=== PATIENT | male | born 1940 | race Hispanic/Latino ===

== ENCOUNTER 2020-01-10 15:43 | Emergency (ER) | payer MEDICARE ==
[2020-01-10] MEDS ORDERED: ACETAMINOPHEN 500 MG TAB PO ONE (16:24)
--- NOTE | 2020-01-10 16:38 | Emergency Department Report ---
ED Fever HPI - General Chief Complaint: Fever Stated Complaint: FEVER AND CHILLS Time Seen by Provider: 01/10/20 16:21 Source: patient Exam Limitations: no limitations - History of Present Illness Initial Comments: 79-year male with a past medical history of kidney stones, GERD, and "stomach problems/constipation presents to the hospital complains of fever x2 in the last 10 days. About 10 days ago patient had a fever of 100 degrees. Symptoms then resolved. Today patient felt very hot with chills but did not have access to his thermometer. He took aspirin 325 mg prior to arrival. Temperature in the ED is 101.3. Patient complains of an occasional dry cough, mild sore throat, and bloated feeling in his stomach. He denies loss of sense of taste or smell, headache, nausea, vomiting, chest pain, shortness of breath, diarrhea, or dysuria. Patient has not been tested for coronavirus. He has not had a known positive coronavirus contacts. PMD Dr. Ramsay ED Review of Systems ROS: Stated complaint: FEVER AND CHILLS Other details as noted in HPI Comment: All other systems reviewed and negative ED Past Medical Hx - Past Medical History Previous Medical History?: Yes Hx GERD: Yes Hx Renal Disease: No (Renal stones) Hx Kidney Stones: Yes Hx Asthma: No Hx HIV: No Additional medical history: fever - Surgical History Past Surgical History?: No - Social History Smoking Status: Former Smoker - Medications Home Medications: Home Medications Medication Instructions Recorded Confirmed Last Taken Type Aspirin EC [Aspirin Enteric Coated 81 mg PO QDAY 01/24/15 05/29/15 04/30/15 History TAB] Finasteride 1 tab PO DAILY 01/24/15 05/29/15 01/27/15 History Omeprazole 1 tab PO DAILY 01/24/15 05/30/15 05/29/15 23:00 History Tamsulosin HCl 1 tab PO DAILY 01/24/15 05/29/15 01/27/15 History Bethanechol Chloride [Urecholine] 50 mg PO 05/30/15 05/30/15 05/29/15 20:00 History Nitrofurantoin [place]/M-Cryst 100 mg PO Q12HR #14 capsule 01/10/20 Unknown Rx [Macrobid CAP] ED Physical Exam - General Limitations: No Limitations - Other Other exam information: General: No acute distress Head: Atraumatic Eyes: normal appearance ENT: Moist mucous membranes, no tender Neck: Normal appearance, no midline tenderness Chest: Clear to auscultation bilaterally CV: Regular rate and rhythm Abdomen: Soft, normal bowel sounds, nontender, nondistended, no rebound or guarding Back: Normal inspection Extremity: Normal inspection, full range of motion Neuro: Alert O x 3, no facial asymmetry, speech clear, no gross motor sensory deficit Psych: Appropriate behavior Skin: No rash ED Course Vital Signs 01/10/20 01/10/20 01/10/20 16:12 16:15 17:00 Temperature 101.3 F H Pulse Rate 98 H 91 H Respiratory 23 23 Rate Blood Pressure 104/47 Blood Pressure 102/60 [Right] O2 Sat by Pulse 95 93 94 Oximetry 01/10/20 01/10/20 01/10/20 18:00 19:00 20:01 Temperature Pulse Rate 76 77 62 Respiratory 18 19 15 Rate Blood Pressure 99/39 95/38 87/45 Blood Pressure [Right] O2 Sat by Pulse 94 93 95 Oximetry 01/10/20 20:20 Temperature 97.8 F Pulse Rate 60 Respiratory 20 Rate Blood Pressure Blood Pressure 98/38 [Right] O2 Sat by Pulse 99 Oximetry ED Medical Decision Making - Lab Data Result diagrams: 01/10/20 16:44 01/10/20 16:44 Lab Results 01/10/20 01/10/20 01/10/20 Range/Units 16:44 16:44 16:44 WBC 9.5 (4.5-11.0) K/mm3 RBC 4.38 (3.65-5.03) M/mm3 Hgb 13.9 (11.8-15.2) gm/dl Hct 41.0 (35.5-45.6) % MCV 94 (84-94) fl MCH 32 (28-32) pg MCHC 34 (32-34) % RDW 14.0 (13.2-15.2) % Plt Count 236 (140-440) K/mm3 Lymph % (Auto) 2.8 L (13.4-35.0) % [place] % (Auto) 7.2 (0.0-7.3) % Eos % (Auto) 0.1 (0.0-4.3) % Baso % (Auto) 0.7 (0.0-1.8) % Lymph # 0.3 L (1.2-5.4) K/mm3 [place] # 0.7 (0.0-0.8) K/mm3 Eos # 0.0 (0.0-0.4) K/mm3 Baso # 0.1 (0.0-0.1) K/mm3 Seg Neutrophils % 89.2 H (40.0-70.0) % Seg Neutrophils # 8.5 H (1.8-7.7) K/mm3 Sodium 139 (137-145) mmol/L Potassium 3.5 L (3.6-5.0) mmol/L Chloride 100.4 (98-107) mmol/L Carbon Dioxide 25 (22-30) mmol/L Anion Gap 17 mmol/L BUN 12 (9-20) mg/dL Creatinine 0.7 L (0.8-1.5) mg/dL Estimated GFR > 60 ml/min BUN/Creatinine Ratio 17 % Glucose 121 H (75-100) mg/dL Lactic Acid 1.40 (0.7-2.0) mmol/L Calcium 9.0 (8.4-10.2) mg/dL Total Bilirubin 0.60 (0.1-1.2) mg/dL AST 16 (5-40) units/L ALT 10 (7-56) units/L Alkaline Phosphatase 53 (35-129) units/L Troponin T < 0.010 (0.00-0.029) ng/mL Total Protein 7.0 (6.3-8.2) g/dL Albumin 4.0 (3.9-5) g/dL Albumin/Globulin Ratio 1.3 % Urine Color (Yellow) Urine Turbidity (Clear) Urine pH (5.0-7.0) Ur Specific [place] (1.003-1.030) Urine Protein (Negative) mg/dL Urine Glucose (UA) (Negative) mg/dL Urine Ketones (Negative) mg/dL Urine Blood (Negative) Urine Nitrite (Negative) Urine Bilirubin (Negative) Urine Urobilinogen (<2.0) mg/dL Ur Leukocyte Esterase (Negative) Urine WBC (Auto) (0.0-6.0) /HPF Urine RBC (Auto) (0.0-6.0) /HPF Urine Bacteria (Auto) (Negative) /HPF Urine Mucus /HPF 01/10/20 01/10/20 Range/Units 19:58 Unknown WBC (4.5-11.0) K/mm3 RBC (3.65-5.03) M/mm3 Hgb (11.8-15.2) gm/dl Hct (35.5-45.6) % MCV (84-94) fl MCH (28-32) pg MCHC (32-34) % RDW (13.2-15.2) % Plt Count (140-440) K/mm3 Lymph % (Auto) (13.4-35.0) % [place] % (Auto) (0.0-7.3) % Eos % (Auto) (0.0-4.3) % Baso % (Auto) (0.0-1.8) % Lymph # (1.2-5.4) K/mm3 [place] # (0.0-0.8) K/mm3 Eos # (0.0-0.4) K/mm3 Baso # (0.0-0.1) K/mm3 Seg Neutrophils % (40.0-70.0) % Seg Neutrophils # (1.8-7.7) K/mm3 Sodium (137-145) mmol/L Potassium (3.6-5.0) mmol/L Chloride (98-107) mmol/L Carbon Dioxide (22-30) mmol/L Anion Gap mmol/L BUN (9-20) mg/dL Creatinine (0.8-1.5) mg/dL Estimated GFR ml/min BUN/Creatinine Ratio % Glucose (75-100) mg/dL Lactic Acid 0.80 (0.7-2.0) mmol/L Calcium (8.4-10.2) mg/dL Total Bilirubin (0.1-1.2) mg/dL AST (5-40) units/L ALT (7-56) units/L Alkaline Phosphatase (35-129) units/L Troponin T (0.00-0.029) ng/mL Total Protein (6.3-8.2) g/dL Albumin (3.9-5) g/dL Albumin/Globulin Ratio % Urine Color Yellow (Yellow) Urine Turbidity Slightly-cloudy (Clear) Urine pH 6.0 (5.0-7.0) Ur Specific [place] 1.016 (1.003-1.030) Urine Protein <15 mg/dl (Negative) mg/dL Urine Glucose (UA) Neg (Negative) mg/dL Urine Ketones Neg (Negative) mg/dL Urine Blood Sm (Negative) Urine Nitrite Neg (Negative) Urine Bilirubin Neg (Negative) Urine Urobilinogen < 2.0 (<2.0) mg/dL Ur Leukocyte Esterase Tr (Negative) Urine WBC (Auto) 20.0 H (0.0-6.0) /HPF Urine RBC (Auto) 7.0 (0.0-6.0) /HPF Urine Bacteria (Auto) 1+ (Negative) /HPF Urine Mucus Few /HPF - Radiology Data Radiology results: report reviewed CHEST 1 VIEW 01/10/2020 4:07 PM INDICATION / CLINICAL INFORMATION: fever, pui. COVID-19 Status: Uncertain COMPARISON: None available. FINDINGS: SUPPORT DEVICES: None. HEART / MEDIASTINUM: Heart is normal size. Thoracic aorta is tortuous. LUNGS / PLEURA: No significant pulmonary or pleural abnormality. No pneumothorax. ADDITIONAL FINDINGS: No significant additional findings. IMPRESSION: 1. No acute pulmonary or pleural findings. - Medical Decision Making Chest x-ray was unremarkable. Urine positive for infection. Patient treated with normal saline, Tylenol, and 1 dose of IV Rocephin. Patient without symptoms prior to discharge and will be discharged with antibiotics Critical Care Time: No Critical care attestation.: If time is entered above; I have spent that time in minutes in the direct care of this critically ill patient, excluding procedure time. ED Disposition Clinical Impression: UTI (urinary tract infection) Disposition: DC-01 TO HOME OR SELFCARE Is pt being admited?: No Does the pt Need Aspirin: No Condition: Stable Instructions: Urinary Tract Infection in Men (ED) Additional Instructions: Take the medication as prescribed. Follow-up with your doctor or doctor/clinic provided. Return if symptoms worsen as indicated by your discharge instructions. We also advised that you receive outpatient coronavirus testing as discussed by your primary care doctor Dr. Ramsay. Prescriptions: Nitrofurantoin [place]/M-Cryst [Macrobid CAP] 100 mg PO Q12HR #14 capsule Referrals: SALINAS RAMSAY MD [Staff Physician] - 3-5 Days Time of Disposition: 21:42
[2020-01-10 16:58] LABS: Basophils # (Auto) 0.1 K/mm3 (0.0-0.1); Basophils % (Auto) 0.7 % (0.0-1.8); Eosinophils % (Auto) 0.1 % (0.0-4.3); Hemoglobin 13.9 gm/dl (11.8-15.2); Lymphocytes # (Auto) 0.3 K/mm3 (1.2-5.4); Lymphocytes % (Auto) 2.8 % (13.4-35.0); Mean Corpuscular HGB Conc 34 % (32-34); Mean Corpuscular Volume 94 fl (84-94); Monocytes # (Auto) 0.7 K/mm3 (0.0-0.8); Monocytes % (Auto) 7.2 % (0.0-7.3); Platelet Count 236 K/mm3 (140-440); Red Blood Count 4.38 M/mm3 (3.65-5.03)
--- NOTE | 2020-01-10 17:14 | XRay Report ---
CHEST 1 VIEW 01/10/2020 4:07 PM INDICATION / CLINICAL INFORMATION: fever, pui. COVID-19 Status: Uncertain COMPARISON: None available. FINDINGS: SUPPORT DEVICES: None. HEART / MEDIASTINUM: Heart is normal size. Thoracic aorta is tortuous. LUNGS / PLEURA: No significant pulmonary or pleural abnormality. No pneumothorax. ADDITIONAL FINDINGS: No significant additional findings. IMPRESSION: 1. No acute pulmonary or pleural findings. Signer Name: Darion Kasper MD Signed: 01/10/2020 5:09 PM Workstation Name: [id number]
[2020-01-10 17:21] LABS: Alanine Aminotransferase 10 units/L (7-56); BUN/Creatinine Ratio 17; Blood Urea Nitrogen 12 mg/dL (9-20); Hemolysis Index 8
[2020-01-10 18:42] LABS: Bacteria,Urine 1+ /HPF (Negative); Bilirubin,Urine NEG (Negative); Blood,Urine SM (Negative); Color,Urine Yellow (Yellow); Mucus,Urine FEW /HPF; Protein,Urine <15 mg/dL mg/dL (Negative); Urobilinogen,Urine < 2.0 mg/dL (<2.0)
[2020-01-10] MEDS ORDERED: cefTRIAXone/NS 1 GM/50 ML 1 GM/50 ML BAG IV ONE (19:17)
[2020-01-10] MEDS ORDERED: POTASSIUM CHLORIDE ER 20 MEQ TAB PO ONE (19:25)
[2020-01-10] MEDS ORDERED: SODIUM CHLORIDE 0.9% 1000 ML 1,000 ML IV ONE (19:26)
[2020-01-10 21:47] VITALS: BP 100/45
== END 2020-01-10 21:46 | disposition home or self-care (01) ==
LOC: ED 15:43
DX: N39.0 Urinary tract infection, site not specified (principal); K21.9 Gastro-esophageal reflux disease without esophagitis; Z87.891 Personal history of nicotine dependence; Z79.899 Other long term (current) drug therapy
CPT/HCPCS: 36415; 71045; 80053; 81001; 82140; 84484; 85025; 87040; 87086; 96365; 99284; J0696; J7030

== ENCOUNTER 2020-06-15 14:37 | Emergency (ER) | payer MEDICARE ==
[2020-06-15 15:15] LABS: Basophils # (Auto) 0.1 K/mm3 (0.0-0.1); Basophils % (Auto) 1.1 % (0.0-1.8); Eosinophils # (Auto) 0.2 K/mm3 (0.0-0.4); Eosinophils % (Auto) 2.2 % (0.0-4.3); Hematocrit 41.2 % (35.5-45.6); Hemoglobin 13.9 gm/dl (11.8-15.2); Lymphocytes # (Auto) 1.4 K/mm3 (1.2-5.4); Lymphocytes % (Auto) 19.9 % (13.4-35.0); Mean Corpuscular HGB Conc 34 % (32-34); Mean Corpuscular Volume 94 fl (84-94); Monocytes # (Auto) 0.4 K/mm3 (0.0-0.8); Monocytes % (Auto) 5.9 % (0.0-7.3); Platelet Count 247 K/mm3 (140-440); Red Blood Count 4.36 M/mm3 (3.65-5.03); Red Cell Distribution Width 14.3 % (13.2-15.2)
[2020-06-15 15:34] LABS: Alanine Aminotransferase 19 units/L (7-56); Albumin 4.1 g/dL (3.9-5); BUN/Creatinine Ratio 16; Blood Urea Nitrogen 13 mg/dL (9-20); Calcium 9.4 mg/dL (8.4-10.2); Hemolysis Index 5
--- NOTE | 2020-06-15 23:26 | Emergency Department Report ---
HPI - General Chief Complaint: Abdominal Pain Time Seen by Provider: 06/15/20 23:08 - HPI HPI: Room 24 The patient is an 79-year-old male present with a chief complaint of chills. The patient states he has to self catheterize and he knows when he gets UTIs. Patient states he tends to get constipated when he has a UTI. Patient states he developed constipation and then in the waiting room he developed shaking chills which he normally develops when he has a UTI. Patient denies nausea/vomiting, fever, hematuria or back pain. ED Past Medical Hx - Past Medical History Previous Medical History?: Yes Hx GERD: Yes Hx Kidney Stones: Yes - Surgical History Past Surgical History?: No - Family History Family history: no significant - Social History Smoking Status: Former Smoker (None x50 years) Substance Use Type: None - Medications Home Medications: Home Medications Medication Instructions Recorded Confirmed Last Taken Type Aspirin EC [Aspirin Enteric Coated 81 mg PO QDAY 01/24/15 05/29/15 04/30/15 History TAB] Finasteride 1 tab PO DAILY 01/24/15 05/29/15 01/27/15 History Omeprazole 1 tab PO DAILY 01/24/15 05/30/15 05/29/15 23:00 History Tamsulosin HCl 1 tab PO DAILY 01/24/15 05/29/15 01/27/15 History Bethanechol Chloride [Urecholine] 50 mg PO 05/30/15 05/30/15 05/29/15 20:00 History Nitrofurantoin [place]/M-Cryst 100 mg PO Q12HR #14 capsule 01/10/20 Unknown Rx [Macrobid CAP] levoFLOXacin [Levaquin TAB] 500 mg PO QDAY #10 tablet 06/16/20 Unknown Rx ED Review of Systems ROS: Stated complaint: ABDOMINAL PAIN Other details as noted in HPI Constitutional: denies: fever Eyes: denies: eye pain ENT: denies: throat pain Respiratory: no symptoms reported Cardiovascular: denies: chest pain Endocrine: no symptoms reported Gastrointestinal: denies: abdominal pain, nausea, vomiting, diarrhea Genitourinary: denies: hematuria Musculoskeletal: denies: back pain Neurological: denies: headache Physical Exam - Physical Exam Physical Exam: GENERAL: The patient is well-developed well-nourished male lying on stretcher not appearing to be in acute distress. [] HEENT: Normocephalic. Atraumatic. Extraocular motions are intact. Patient has moist mucous membranes. NECK: Supple. Trachea midline CHEST/LUNGS: Clear to auscultation. There is no respiratory distress noted. HEART/CARDIOVASCULAR: Regular. There is no tachycardia. There is no gallop rub or murmur. ABDOMEN: Abdomen is soft, nontender. Patient has normal bowel sounds. There is no abdominal distention. SKIN: There is no rash. There is no edema. There is no diaphoresis. NEURO: The patient is awake, alert, and oriented. The patient is cooperative. The patient has no focal neurologic deficits. The patient has normal speech and gait. MUSCULOSKELETAL: There is no evidence of acute injury. ED Medical Decision Making - Lab Data Result diagrams: 06/15/20 15:00 06/15/20 15:00 Laboratory Tests 06/15/20 06/15/20 06/15/20 15:00 15:00 Unknown WBC 7.1 RBC 4.36 Hgb 13.9 Hct 41.2 MCV 94 MCH 32 MCHC 34 RDW 14.3 Plt Count 247 Lymph % (Auto) 19.9 [place] % (Auto) 5.9 Eos % (Auto) 2.2 Baso % (Auto) 1.1 Lymph # (Auto) 1.4 [place] # (Auto) 0.4 Eos # (Auto) 0.2 Baso # (Auto) 0.1 Seg Neutrophils % 70.9 H Seg Neutrophils # 5.0 Sodium 138 Potassium 4.3 Chloride 100.3 Carbon Dioxide 29 Anion Gap 13 BUN 13 Creatinine 0.8 Estimated GFR > 60 BUN/Creatinine Ratio 16 Glucose 98 Calcium 9.4 Total Bilirubin 0.50 AST 24 ALT 19 Alkaline Phosphatase 55 Total Protein 6.8 Albumin 4.1 Albumin/Globulin Ratio 1.5 Urine Color Yellow Urine Turbidity Slightly-cloudy Urine pH 5.0 Ur Specific [place] 1.010 Urine Protein <15 mg/dl Urine Glucose (UA) Neg Urine Ketones Tr Urine Blood Lg Urine Nitrite Pos Urine Bilirubin Neg Urine Urobilinogen < 2.0 Ur Leukocyte Esterase Sm Urine WBC (Auto) 54.0 H Urine RBC (Auto) 156.0 U Epithel Cells (Auto) < 1.0 Urine Bacteria (Auto) 2+ Urine Mucus Few - Differential Diagnosis UTI, constipation Critical care attestation.: If time is entered above; I have spent that time in minutes in the direct care of this critically ill patient, excluding procedure time. ED Disposition Clinical Impression: UTI (urinary tract infection) Disposition: TO HOME OR SELFCARE Is pt being admited?: No Does the pt Need Aspirin: No Condition: Stable Additional Instructions: Return to the emergency department should you develop worsening symptoms, inability to tolerate food or liquids, high fever or any other concerns Prescriptions: levoFLOXacin [Levaquin TAB] 500 mg PO QDAY #10 tablet Referrals: GERSON LEW MD [Primary Care Provider] - 3-5 Days
[2020-06-16 00:07] LABS: Bacteria,Urine 2+ /HPF (Negative); Bilirubin,Urine NEG (Negative); Blood,Urine LG (Negative); Color,Urine Yellow (Yellow); Mucus,Urine FEW /HPF; Protein,Urine <15 mg/dL mg/dL (Negative); Urobilinogen,Urine < 2.0 mg/dL (<2.0)
[2020-06-16] MEDS ORDERED: levoFLOXacin 500 MG TAB PO ONE (00:10)
[2020-06-16 00:23] VITALS: BP 141/78
== END 2020-06-16 01:00 | disposition home or self-care (01) ==
LOC: ED 14:37
DX: N39.0 Urinary tract infection, site not specified (principal); K21.9 Gastro-esophageal reflux disease without esophagitis; Z87.891 Personal history of nicotine dependence
CPT/HCPCS: 36415; 80053; 81001; 85025; 87086

== ENCOUNTER 2020-08-24 10:49 | Emergency (ER) | payer MEDICARE, BC ==
[2020-08-24 10:54] VITALS: BP 129/63
[2020-08-24 11:29] LABS: Basophils # (Auto) 0.1 K/mm3 (0.0-0.1); Basophils % (Auto) 1.4 % (0.0-1.8); Eosinophils # (Auto) 0.1 K/mm3 (0.0-0.4); Eosinophils % (Auto) 3.3 % (0.0-4.3); Hematocrit 41.1 % (35.5-45.6); Hemoglobin 13.9 gm/dl (11.8-15.2); Lymphocytes # (Auto) 1.3 K/mm3 (1.2-5.4); Lymphocytes % (Auto) 28.4 % (13.4-35.0); Mean Corpuscular HGB Conc 34 % (32-34); Mean Corpuscular Volume 96 fl (84-94); Monocytes # (Auto) 0.4 K/mm3 (0.0-0.8); Monocytes % (Auto) 8.5 % (0.0-7.3); Platelet Count 244 K/mm3 (140-440); Red Blood Count 4.28 M/mm3 (3.65-5.03); Red Cell Distribution Width 14.2 % (13.2-15.2)
[2020-08-24 11:48] LABS: Bacteria,Urine 2+ /HPF (Negative); Bilirubin,Urine NEG (Negative); Blood,Urine SM (Negative); Color,Urine Amber (Yellow); Mucus,Urine 3+ /HPF; Urobilinogen,Urine < 2.0 mg/dL (<2.0)
[2020-08-24 11:49] LABS: WBC,Urine > 182.0 /HPF (0.0-6.0)
--- NOTE | 2020-08-24 11:50 | Emergency Department Report ---
ED Dysuria HPI - HPI Chief Complaint: Urogenital-Male Stated Complaint: CATHER ISSUE Duration: 2 Days Severity: Mild Symptoms: Dysuria: Yes, Frequency: Yes, Suprapubic Pain: No, Flank Pain: No, Fever: No, Hematuria: Yes, Abdominal Pain: No, Previous UTI's: Yes Other History: This is a 79-year-old male with a history of urinary retention who presents the ED complaining of dysuria and frequent urinary frequency stating that he has a UTI. Patient states he gets them often. Patient states he uses He uses a catheter as instructed by his primary care physician. ED Review of Systems ROS: Stated complaint: CATHER ISSUE Other details as noted in HPI Comment: All other systems reviewed and negative ED Past Medical Hx - Past Medical History Hx GERD: Yes Hx Renal Disease: No (Renal stones) Hx Kidney Stones: Yes Hx HIV: No - Social History Smoking Status: Never Smoker Substance Use Type: None - Medications Home Medications: Home Medications Medication Instructions Recorded Confirmed Last Taken Type Aspirin EC [Aspirin Enteric Coated 81 mg PO QDAY 01/24/15 05/29/15 04/30/15 History TAB] Finasteride 1 tab PO DAILY 01/24/15 05/29/15 01/27/15 History Omeprazole 1 tab PO DAILY 01/24/15 05/30/15 05/29/15 23:00 History Tamsulosin HCl 1 tab PO DAILY 01/24/15 05/29/15 01/27/15 History Bethanechol Chloride [Urecholine] 50 mg PO 05/30/15 05/30/15 05/29/15 20:00 History Nitrofurantoin [place]/M-Cryst 100 mg PO Q12HR #14 capsule 01/10/20 Unknown Rx [Macrobid CAP] levoFLOXacin [Levaquin TAB] 500 mg PO QDAY #10 tablet 06/16/20 Unknown Rx Nitrofurantoin [place]/M-Cryst 100 mg PO Q12HR #14 capsule 08/24/20 Unknown Rx [Macrobid CAP] Phenazopyridine [Pyridium] 100 mg PO TID #10 tab 08/24/20 Unknown Rx Dysuria Exam - Exam General: Vital signs noted. No distress. Alert and acting appropriately. Exam: Yes Moist Mucous Membranes, No CVA Tenderness, No Abdominal Tenderness, No Rigidity or Guarding Labs: Lab Results 08/24/20 08/24/20 Range/Units 11:08 11:11 WBC 4.5 (4.5-11.0) K/mm3 RBC 4.28 (3.65-5.03) M/mm3 Hgb 13.9 (11.8-15.2) gm/dl Hct 41.1 (35.5-45.6) % MCV 96 H (84-94) fl MCH 32 (28-32) pg MCHC 34 (32-34) % RDW 14.2 (13.2-15.2) % Plt Count 244 (140-440) K/mm3 Lymph % (Auto) 28.4 (13.4-35.0) % [place] % (Auto) 8.5 H (0.0-7.3) % Eos % (Auto) 3.3 (0.0-4.3) % Baso % (Auto) 1.4 (0.0-1.8) % Lymph # (Auto) 1.3 (1.2-5.4) K/mm3 [place] # (Auto) 0.4 (0.0-0.8) K/mm3 Eos # (Auto) 0.1 (0.0-0.4) K/mm3 Baso # (Auto) 0.1 (0.0-0.1) K/mm3 Seg Neutrophils % 58.4 (40.0-70.0) % Seg Neutrophils # 2.6 (1.8-7.7) K/mm3 Urine Bilirubin Neg (Negative) Urine RBC (Auto) 30.0 (0.0-6.0) /HPF ED Course Vital Signs 08/24/20 10:50 Temperature 98.3 F Pulse Rate 65 Respiratory 18 Rate Blood Pressure 129/63 O2 Sat by Pulse 98 Oximetry ED Medical Decision Making - Lab Data Result diagrams: 08/24/20 11:11 08/24/20 11:11 Laboratory Last Values WBC 4.5 K/mm3 (4.5-11.0) 08/24/20 11:11 RBC 4.28 M/mm3 (3.65-5.03) 08/24/20 11:11 Hgb 13.9 gm/dl (11.8-15.2) 08/24/20 11:11 Hct 41.1 % (35.5-45.6) 08/24/20 11:11 MCV 96 fl (84-94) H 08/24/20 11:11 MCH 32 pg (28-32) 08/24/20 11:11 MCHC 34 % (32-34) 08/24/20 11:11 RDW 14.2 % (13.2-15.2) 08/24/20 11:11 Plt Count 244 K/mm3 (140-440) 08/24/20 11:11 Lymph % (Auto) 28.4 % (13.4-35.0) 08/24/20 11:11 [place] % (Auto) 8.5 % (0.0-7.3) H 08/24/20 11:11 Eos % (Auto) 3.3 % (0.0-4.3) 08/24/20 11:11 Baso % (Auto) 1.4 % (0.0-1.8) 08/24/20 11:11 Lymph # (Auto) 1.3 K/mm3 (1.2-5.4) 08/24/20 11:11 [place] # (Auto) 0.4 K/mm3 (0.0-0.8) 08/24/20 11:11 Eos # (Auto) 0.1 K/mm3 (0.0-0.4) 08/24/20 11:11 Baso # (Auto) 0.1 K/mm3 (0.0-0.1) 08/24/20 11:11 Seg Neutrophils % 58.4 % (40.0-70.0) 08/24/20 11:11 Seg Neutrophils # 2.6 K/mm3 (1.8-7.7) 08/24/20 11:11 Sodium 141 mmol/L (137-145) 08/24/20 11:11 Potassium 4.0 mmol/L (3.6-5.0) 08/24/20 11:11 Chloride 104.1 mmol/L (98-107) 08/24/20 11:11 Carbon Dioxide 31 mmol/L (22-30) H 08/24/20 11:11 Anion Gap 10 mmol/L 08/24/20 11:11 BUN 13 mg/dL (9-20) 08/24/20 11:11 Creatinine 0.7 mg/dL (0.8-1.3) L 08/24/20 11:11 Estimated GFR > 60 ml/min 08/24/20 11:11 BUN/Creatinine Ratio 19 % 08/24/20 11:11 Glucose 91 mg/dL (75-100) 08/24/20 11:11 Calcium 9.0 mg/dL (8.4-10.2) 08/24/20 11:11 Total Bilirubin 0.80 mg/dL (0.1-1.2) 08/24/20 11:11 AST 18 units/L (5-40) 08/24/20 11:11 ALT 11 units/L (7-56) 08/24/20 11:11 Alkaline Phosphatase 59 units/L (35-129) 08/24/20 11:11 Total Protein 6.6 g/dL (6.3-8.2) 08/24/20 11:11 Albumin 3.9 g/dL (3.9-5) 08/24/20 11:11 Albumin/Globulin Ratio 1.4 % 08/24/20 11:11 Urine Color [place] (Yellow) 08/24/20 11:08 Urine Turbidity Cloudy (Clear) 08/24/20 11:08 Urine pH 6.0 (5.0-7.0) 08/24/20 11:08 Ur Specific [place] 1.021 (1.003-1.030) 08/24/20 11:08 Urine Protein 30 mg/dl mg/dL (Negative) 08/24/20 11:08 Urine Glucose (UA) Neg mg/dL (Negative) 08/24/20 11:08 Urine Ketones Neg mg/dL (Negative) 08/24/20 11:08 Urine Blood Sm (Negative) 08/24/20 11:08 Urine Nitrite Pos (Negative) 08/24/20 11:08 Urine Bilirubin Neg (Negative) 08/24/20 11:08 Urine Urobilinogen < 2.0 mg/dL (<2.0) 08/24/20 11:08 Ur Leukocyte Esterase Lg (Negative) 08/24/20 11:08 Urine WBC (Auto) > 182.0 /HPF (0.0-6.0) H 08/24/20 11:08 Urine RBC (Auto) 30.0 /HPF (0.0-6.0) 08/24/20 11:08 Urine Bacteria (Auto) 2+ /HPF (Negative) 08/24/20 11:08 Urine Mucus 3+ /HPF 08/24/20 11:08 - Medical Decision Making 79-year-old male presents with a bacterial urinary tract infection ED course: Patient received an antibiotic dose and Motrin during ED stay Urinalysis is positive for bacteria, WBC and normal otherwise, I discussed this findings with the patient. I discussed the patient to make sure he completes all of the antibiotic dose even until symptoms resolve. I discussed with the patient on Pyridium will turn his urine orangeish color but will stop once he stops taking pyridium Patient is in no acute distress, patient also has on instructions were given to him. Critical care attestation.: If time is entered above; I have spent that time in minutes in the direct care of this critically ill patient, excluding procedure time. ED Disposition Clinical Impression: UTI (urinary tract infection) Disposition: - TO HOME OR SELFCARE Is pt being admited?: No Does the pt Need Aspirin: No Condition: Stable Instructions: Urinary Tract Infection, Adult Additional Instructions: Make sure to follow up with the primary care physician as discussed. Take all your medications as you've been prescribed. If you have any worsening symptoms or develop new symptoms please return to ED immediately. Prescriptions: Nitrofurantoin [place]/M-Cryst [Macrobid CAP] 100 mg PO Q12HR #14 capsule Phenazopyridine [Pyridium] 100 mg PO TID #10 tab Referrals: PRIMARY CARE, [Primary Care Provider] - 3-5 Days [facility] [Outside] - 3-5 Days Forms: Work/School Release Form(ED) Time of Disposition: 12:34
[2020-08-24 11:54] LABS: Alanine Aminotransferase 11 units/L (7-56); Albumin 3.9 g/dL (3.9-5); Blood Urea Nitrogen 13 mg/dL (9-20); Hemolysis Index 10
[2020-08-24 11:55] LABS: BUN/Creatinine Ratio 19
== END 2020-08-24 13:24 | disposition home or self-care (01) ==
LOC: ED 10:49
DX: N39.0 Urinary tract infection, site not specified (principal); K21.9 Gastro-esophageal reflux disease without esophagitis; Z79.899 Other long term (current) drug therapy
CPT/HCPCS: 36415; 80053; 81001; 85025

== ENCOUNTER 2020-08-26 11:22 | Emergency (ER) | payer MEDICARE, BC ==
--- NOTE | 2020-08-26 11:33 | Emergency Department Report ---
Blank Doc - Documentation Documentation: 79-year-old male that presents with hematuria. Patient has history of bladder incontinence. 1- This initial assessment/diagnostic orders/clinical plan/ treatment(s) is/are subject to change based on pt's health status, clinical progression and re- assessment by fellow clinical providers in the ED. Further treatment and workup at subsequent clinical provers discretion. Patient/guardians urged not to elope from ED as their condition may be serious if not clinically assessed and managed. 2-UA 3-labs
[2020-08-26 11:52] LABS: Bilirubin,Urine NEG (Negative); Blood,Urine SM (Negative); Color,Urine Amber (Yellow); Mucus,Urine FEW /HPF; Protein,Urine <15 mg/dL mg/dL (Negative)
--- NOTE | 2020-08-26 12:08 | Emergency Department Report ---
ED Male HPI - General Chief complaint: Urogenital-Male Stated complaint: BLOOD IN URINE/SEEN HERE THURSDAY Time Seen by Provider: 08/26/20 11:28 Source: patient Mode of arrival: Ambulatory Limitations: Physical Limitation - History of Present Illness Initial comments: 79-year-old male presents to ED with complaint of hematuria. Patient performs self catheterization due to "bladder issues." Patient states he has been doing this for the last 4 years. Patient came to the ED 2 days ago because he felt like he was developing a bladder infection. He reports having some suprapubic discomfort. Patient was seen and diagnosed with a UTI and given Macrobid. Last night and this morning, patient noticed blood in his urine. Patient denies any fever, nausea, vomiting, or increased suprapubic pain or discomfort. Patient is also unsure if the hematuria may be secondary to the fact that he was sent the wrong size catheters (larger than his usual size) in his last shipment of supplies. Urologist: Dr. Margie SANABRIA Complaint: other -: Last night Radiation: none Severity: mild Consistency: constant Improves with: none Worsens with: none blood in urine. denies: fever, nausea/vomiting - Related Data Home Medications Medication Instructions Recorded Confirmed Last Taken Aspirin EC [Aspirin Enteric Coated 81 mg PO QDAY 01/24/15 05/29/15 04/30/15 TAB] Finasteride 1 tab PO DAILY 01/24/15 05/29/15 01/27/15 Omeprazole 1 tab PO DAILY 01/24/15 05/30/15 05/29/15 23:00 Tamsulosin HCl 1 tab PO DAILY 01/24/15 05/29/15 01/27/15 Bethanechol Chloride [Urecholine] 50 mg PO 05/30/15 05/30/15 05/29/15 20:00 Previous Rx's Medication Instructions Recorded Last Taken Type Nitrofurantoin Bowman/M-Cryst 100 mg PO Q12HR #14 capsule 01/10/20 Unknown Rx [Macrobid CAP] levoFLOXacin [Levaquin TAB] 500 mg PO QDAY #10 tablet 06/16/20 Unknown Rx Nitrofurantoin Bowman/M-Cryst 100 mg PO Q12HR #14 capsule 08/24/20 Unknown Rx [Macrobid CAP] Phenazopyridine [Pyridium] 100 mg PO TID #10 tab 08/24/20 Unknown Rx Allergies Allergy/AdvReac Type Severity Reaction Status Date / Time No Known Allergies Allergy Verified 08/24/20 10:50 ED Review of Systems ROS: Stated complaint: BLOOD IN URINE/SEEN HERE THURSDAY Other details as noted in HPI Comment: All other systems reviewed and negative Constitutional: denies: fever Gastrointestinal: abdominal pain. denies: nausea, vomiting Genitourinary: hematuria ED Past Medical Hx - Past Medical History Previous Medical History?: Yes Hx GERD: Yes Hx Renal Disease: No (Renal stones) Hx Kidney Stones: Yes Hx HIV: No Additional medical history: Self cath for dysuria - Surgical History Past Surgical History?: No - Social History Smoking Status: Never Smoker Substance Use Type: None - Medications Home Medications: Home Medications Medication Instructions Recorded Confirmed Last Taken Type Aspirin EC [Aspirin Enteric Coated 81 mg PO QDAY 01/24/15 05/29/15 04/30/15 History TAB] Finasteride 1 tab PO DAILY 01/24/15 05/29/15 01/27/15 History Omeprazole 1 tab PO DAILY 01/24/15 05/30/15 05/29/15 23:00 History Tamsulosin HCl 1 tab PO DAILY 01/24/15 05/29/15 01/27/15 History Bethanechol Chloride [Urecholine] 50 mg PO 05/30/15 05/30/15 05/29/15 20:00 History Nitrofurantoin Bowman/M-Cryst 100 mg PO Q12HR #14 capsule 01/10/20 Unknown Rx [Macrobid CAP] levoFLOXacin [Levaquin TAB] 500 mg PO QDAY #10 tablet 06/16/20 Unknown Rx Nitrofurantoin Bowman/M-Cryst 100 mg PO Q12HR #14 capsule 08/24/20 Unknown Rx [Macrobid CAP] Phenazopyridine [Pyridium] 100 mg PO TID #10 tab 08/24/20 Unknown Rx ED Physical Exam - General Limitations: Physical Limitation General appearance: alert, in no apparent distress - Head Head exam: Present: atraumatic, normocephalic - Eye Eye exam: Present: normal appearance, EOMI - ENT ENT exam: Present: mucous membranes moist - Neck Neck exam: Present: normal inspection - Respiratory Respiratory exam: Present: normal lung sounds bilaterally. Absent: respiratory distress - Cardiovascular Cardiovascular Exam: Present: regular rate, normal rhythm - GI/Abdominal GI/Abdominal exam: Present: soft. Absent: distended, tenderness - Extremities Exam Extremities exam: Present: normal inspection - Neurological Exam Neurological exam: Present: alert, oriented X3 - Psychiatric Psychiatric exam: Present: normal affect, normal mood - Skin Skin exam: Present: warm, dry, intact, normal color ED Course Vital Signs 08/26/20 08/26/20 08/26/20 11:30 11:53 12:53 Temperature 98.5 F Pulse Rate 63 60 Respiratory 20 20 16 Rate Blood Pressure 128/55 Blood Pressure 115/53 [Right] O2 Sat by Pulse 99 99 97 Oximetry ED Medical Decision Making - Lab Data Result diagrams: 08/26/20 11:58 08/26/20 11:58 - Medical Decision Making Looking at UA, infection appears to be improving. There are slightly more RBCs on today's UA compared to a couple of days ago. Vital signs are stable. Will discharge at this time. No additional medications needed, patient advised to finish his antibiotics course. Outpatient follow-up with his urologist as recommended. Return precautions given. - Differential Diagnosis UTI Critical care attestation.: If time is entered above; I have spent that time in minutes in the direct care of this critically ill patient, excluding procedure time. ED Disposition Clinical Impression: Hematuria Disposition: DC-01 TO HOME OR SELFCARE Is pt being admited?: No Condition: Stable Instructions: Hematuria, Adult Referrals: YIMI THOMAS MD [Staff Physician] - 3-5 Days Time of Disposition: 12:39
[2020-08-26 12:24] LABS: Basophils # (Auto) 0.1 K/mm3 (0.0-0.1); Eosinophils # (Auto) 0.1 K/mm3 (0.0-0.4); Eosinophils % (Auto) 2.8 % (0.0-4.3); Hematocrit 40.9 % (35.5-45.6); Hemoglobin 13.8 gm/dl (11.8-15.2); Lymphocytes # (Auto) 1.4 K/mm3 (1.2-5.4); Lymphocytes % (Auto) 27.3 % (13.4-35.0); Mean Corpuscular HGB Conc 34 % (32-34); Mean Corpuscular Volume 94 fl (84-94); Monocytes # (Auto) 0.5 K/mm3 (0.0-0.8); Monocytes % (Auto) 8.8 % (0.0-7.3); Platelet Count 253 K/mm3 (140-440); Red Blood Count 4.33 M/mm3 (3.65-5.03); Red Cell Distribution Width 13.8 % (13.2-15.2)
[2020-08-26 12:32] LABS: Alanine Aminotransferase 13 units/L (7-56); Albumin 4.1 g/dL (3.9-5); Blood Urea Nitrogen 14 mg/dL (9-20); Calcium 9.2 mg/dL (8.4-10.2); Hemolysis Index 6
[2020-08-26 12:34] LABS: BUN/Creatinine Ratio 20; Bilirubin,Direct < 0.2 mg/dL (0-0.2)
[2020-08-26 12:54] VITALS: BP 115/53
== END 2020-08-26 12:54 | disposition home or self-care (01) ==
LOC: ED 11:22
DX: R31.9 Hematuria, unspecified (principal); K21.9 Gastro-esophageal reflux disease without esophagitis; Z79.899 Other long term (current) drug therapy
CPT/HCPCS: 36415; 80048; 80076; 81001; 85025; 87086

== ENCOUNTER 2020-11-07 13:06 | Emergency (ER) | payer MEDICARE, BC ==
[2020-11-07 13:33] VITALS: BP 121/51
--- NOTE | 2020-11-07 13:57 | Event Note ---
ED Screening Note Date of service: 11/07/20 Time: 13:41 ED Screening Note: 79-year-old male presents to the emergency room reporting that he has had trouble voiding. Thinks he has a urinary tract infection. Patient self caths. This initial assessment/diagnostic orders/clinical plan/treatment(s) is/are subject to change based on patients health status, clinical progression and re- assessment by fellow clinical providers in the ED. Further treatment and workup at subsequent clinical providers discretion. Patient/guardian urged not to elope from the ED as their condition may be serious if not clinically assessed and managed. Initial orders include:
[2020-11-07 14:12] LABS: Basophils # (Auto) 0.1 K/mm3 (0.0-0.1); Basophils % (Auto) 1.4 % (0.0-1.8); Eosinophils # (Auto) 0.1 K/mm3 (0.0-0.4); Eosinophils % (Auto) 2.7 % (0.0-4.3); Hemoglobin 13.9 gm/dl (11.8-15.2); Lymphocytes # (Auto) 1.1 K/mm3 (1.2-5.4); Mean Corpuscular HGB Conc 35 % (32-34); Mean Corpuscular Volume 94 fl (84-94); Monocytes # (Auto) 0.4 K/mm3 (0.0-0.8); Monocytes % (Auto) 8.3 % (0.0-7.3); Platelet Count 251 K/mm3 (140-440); Red Blood Count 4.24 M/mm3 (3.65-5.03); Red Cell Distribution Width 13.7 % (13.2-15.2)
[2020-11-07 14:37] LABS: Alanine Aminotransferase 14 units/L (7-56); Blood Urea Nitrogen 12 mg/dL (9-20); Calcium 8.8 mg/dL (8.4-10.2); Hemolysis Index 6
[2020-11-07 14:38] LABS: BUN/Creatinine Ratio 17
== END 2020-11-07 20:17 ==
LOC: ED 13:06
DX: R10.9 Unspecified abdominal pain (principal); Z53.21 Procedure and treatment not carried out due to patient leaving prior to being seen by health care provider
CPT/HCPCS: 36415; 80053; 85025

== ENCOUNTER 2022-02-25 11:00 | Outpatient (CLI) | payer MEDICARE, BC | END 2022-02-25 11:01 | disposition home or self-care (01) | LOC: SLR 11:00 | PROVIDERS: ATTEND Internal Medicine | DX: G47.30 Sleep apnea, unspecified (principal) | CPT/HCPCS: 95810 ==

== ENCOUNTER 2022-03-14 11:00 | Outpatient (CLI) | payer MEDICARE, BC | END 2022-03-14 11:01 | disposition home or self-care (01) | LOC: SLR 11:00 | PROVIDERS: ATTEND Internal Medicine | DX: G47.33 Obstructive sleep apnea (adult) (pediatric) (principal) | CPT/HCPCS: 95811 ==